=== PATIENT | male | born 1980 | race Caucasian/White ===

== ENCOUNTER → 2021-12-07 08:48 | Outpatient (CLI) | payer OTHER, SELFPAY ==
--- NOTE | ~2021-12-07 | MR_ITS ---
EXAMINATION: MR knee RT wo con DATE: 12/07/2021 09:22 INDICATION: Acute right knee pain. TECHNIQUE: Magnetic resonance imaging (MRI) of the right knee was performed without intravenous contr ast. Sequences included axial PD-weighted FS FSE, coronal PD-weighted FSE and PD-weighted FS FSE, sag ittal PD-weighted FSE, and sagittal T2-weighted FS FSE. COMPARISON: None. FINDINGS: Medial compartment: There is an upper surface horizontal tear of anterior root of medial meniscus with 12 x 4 mm paralabr al cyst. Medial compartment cartilage is normal. There are tiny osteophytes. Lateral compartment: There is a complex tear of anterior horn of lateral meniscus. There is a complex tear of posterior ro ot of lateral meniscus. There is cartilage surface irregularity of tibial condyle and femoral condyle . Osteophytes are noted. Patellofemoral compartment: There is full-thickness cartilage loss of patellar lateral facet and deep partial thickness cartilage loss of patellar median ridge and medial facet with mild subchondral edema-like marrow signal intens ity. There is full-thickness cartilage loss of lateral trochlea with mild subchondral edema-like sign al intensity. Osteophytes are noted. Ligaments and tendons: The anterior cruciate ligament is normal. There is a partial tear of posterior cruciate ligament cristian acterized by thickening and increased signal intensity. There are changes of prior sprains of medial collateral ligament and fibular collateral ligament characterized by thickening and increased signal intensity approximately. There is mild patellar tendinopathy. Fluid: There is a small knee joint effusion. There is trace fluid in a Quinn's cyst. There is mild prepatell ar and superficial infrapatellar bursitis. IMPRESSION: 1. Severe chondrosis of patellofemoral compartment and mild chondrosis of lateral compartment. 2. Tears of medial and lateral menisci. 3. Small knee joint effusion. 4. Partial tear of posterior cruciate ligament. Reviewed, dictated and finalized at location A. IMPRESSION: 1. Severe chondrosis of patellofemoral compartment and mild chondrosis of later al compartment. 2. Tears of medial and lateral menisci. 3. Small knee joint effusion. 4. Partial tear of posterior cruciate ligament.
== END ==
PROVIDERS: PCP Family Medicine Sports Medicine; Visit Provider Family Medicine Sports Medicine
DX: M25.461 Effusion, right knee (principal); S83.521A Sprain of posterior cruciate ligament of right knee, initial encounter; S83.281A Other tear of lateral meniscus, current injury, right knee, initial encounter; S83.241A Other tear of medial meniscus, current injury, right knee, initial encounter; X58.XXXA Exposure to other specified factors, initial encounter
CPT/HCPCS: 73721